=== PATIENT | male | born 1975 | race Caucasian/White ===

== ENCOUNTER 2017-02-17 19:14 | Emergency (ER) | payer MEDICAID ==
[~2017-02-17] VITALS: Ht 160 cm; Wt 122.5 kg
[~2017-02-17 19:14] MED LIST: ASPIRIN81 M2 PO; CELEXA20 MG PO; CIPROFLOXACIN500 M1 PO; HYDROCODONE-AP1 EAC6 PO; PRILOSEC 20 MG20 MG PO; TOPROL XL25 MG PO
[2017-02-17] MEDS ORDERED: EFFEXOR XR75 MG PO (19:20)
[2017-02-17 19:32] LABS: ABSOLUTE EOSINOPHILS 0.5 thou/uL (0.0-0.7); ABSOLUTE LYMPHOCYTES 1.8 thou/uL (0.8-5.3); ABSOLUTE MONOCYTES 1.2 thou/uL (0.0-1.2); BASOPHILS 0.3 %; EOSINOPHILS 4.1 %; HEMATOCRIT 43.6 % (42.0-52.0); HEMOGLOBIN 14.4 gm/dL (14.0-18.0); LYMPHOCYTES 14.4 %; MCHC 33.1 g/dL (28.0-37.0); MCV 84.8 fL (80.0-100.0); MONOCYTES 9.3 %; MPV 8.3 fl. (7.2-11.1); NUCLEATED RBCS 0 /100WBC; PLATELET COUNT* 328 thou/uL (150-400); POLYS 71.9 %; RBC 5.14 mil/uL (4.50-6.00); RDW-CV 13.8 % (10.5-14.5); WBC 12.6 thou/uL (4.0-11.0)
[2017-02-17 19:41] LABS: CALCIUM 8.4 mg/dL (8.5-10.1); POTASSIUM 3.8 mmol/L (3.5-5.1)
[2017-02-17 19:45] LABS: ALBUMIN 3.1 g/dL (3.4-5.0); TOTAL BILIRUBIN 0.3 mg/dL (<0.1-1.0)
[2017-02-17] MEDS ORDERED: HYDROCODONE-AP1 EAC6 PO (21:07)
[2017-02-17 21:31] VITALS: BP 172/90
== END 2017-02-17 21:34 | disposition home or self-care (01) ==
LOC: M.ERS 19:14
PROVIDERS: Physician Assistant
DX: R10.33 Periumbilical pain (principal); R10.32 Left lower quadrant pain; I10 Essential (primary) hypertension; F41.9 Anxiety disorder, unspecified; Z87.442 Personal history of urinary calculi; Z98.890 Other specified postprocedural states; Z87.898 Personal history of other specified conditions; Z88.1 Allergy status to other antibiotic agents; Z88.8 Allergy status to other drugs, medicaments and biological substances

== ENCOUNTER 2017-07-16 21:35 | Inpatient (IN) | payer MEDICAID ==
[~2017-07-16] VITALS: Ht 160 cm; Wt 131.4 kg
[~2017-07-16 21:35] MED LIST changes: +EFFEXOR XR75 MG PO
[2017-07-16 21:37] VITALS: BP 137/84
[2017-07-16 21:57] LABS: ABSOLUTE EOSINOPHILS 0.6 thou/uL (0.0-0.7); ABSOLUTE LYMPHOCYTES 2.4 thou/uL (0.8-5.3); ABSOLUTE MONOCYTES 1.2 thou/uL (0.0-1.2); ABSOLUTE NEUTROPHILS 7.4 thou/uL (1.6-8.1); BASOPHILS 0.2 %; HEMATOCRIT 43.1 % (42.0-52.0); HEMOGLOBIN 14.3 gm/dL (14.0-18.0); LYMPHOCYTES 20.9 %; MCH 27.6 pg (26.0-34.0); MCHC 33.1 g/dL (28.0-37.0); MCV 83.4 fL (80.0-100.0); MPV 8.4 fl. (7.2-11.1); NUCLEATED RBCS 0 /100WBC; PLATELET COUNT* 321 thou/uL (150-400); POLYS 63.9 %; RBC 5.17 mil/uL (4.50-6.00); RDW-CV 14.6 % (10.5-14.5); WBC 11.5 thou/uL (4.0-11.0)
[2017-07-16 22:06] LABS: ANION GAP 5 mmol/L (7-16); BUN 14 mg/dL (7-18); CALCIUM 8.4 mg/dL (8.5-10.1); CHLORIDE 105 mmol/L (98-107); CO2 27 mmol/L (21-32); CREATININE 0.9 mg/dL (0.6-1.3); GLUCOSE 111 mg/dL (70-99); POTASSIUM 3.6 mmol/L (3.5-5.1); SODIUM 137 mmol/L (136-145)
[2017-07-16 22:09] LABS: PROTIME 9.8 Seconds (9.20-11.50)
[2017-07-16 22:16] LABS: ALBUMIN 3.2 g/dL (3.4-5.0); ALKALINE PHOSPHATASE 116 U/L (46-116); NT-PRO BRAIN NAT PEPTIDE 12 pg/mL (<300); SGOT 12 U/L (15-37); SGPT 37 U/L (30-65); TOTAL BILIRUBIN 0.2 mg/dL (<0.1-1.0); TROPONIN-I LEVEL <0.06 ng/mL (<0.06)
[2017-07-17] VITALS (7 sets, daily range): BP systolic 124–160; BP diastolic 89–108
[2017-07-17] MEDS ORDERED: MIRALAX17 GM PO (00:43)
[2017-07-17 05:19] LABS: HEMATOCRIT 43.5 % (42.0-52.0); HEMOGLOBIN 14.2 gm/dL (14.0-18.0); MCH 27.6 pg (26.0-34.0); MCHC 32.5 g/dL (28.0-37.0); MCV 84.7 fL (80.0-100.0); MPV 8.5 fl. (7.2-11.1); RBC 5.13 mil/uL (4.50-6.00); RDW-CV 14.5 % (10.5-14.5); WBC 11.8 thou/uL (4.0-11.0)
[2017-07-17 05:46] LABS: ALBUMIN 3.3 g/dL (3.4-5.0); CALCIUM 8.7 mg/dL (8.5-10.1); POTASSIUM 4.4 mmol/L (3.5-5.1); TOTAL BILIRUBIN 0.3 mg/dL (<0.1-1.0); TOTAL PROTEIN 6.8 g/dL (6.4-8.2)
[2017-07-17 10:25] LABS: CHOLESTEROL 129 mg/dL (<200); HDL CHOLESTEROL 35 mg/dL (>40); LDL CHOLESTEROL 76 mg/dL (<100); SERUM ASSESSMENT Clear; TC:HDL 3.7 Ratio (Not establshd); TRIGLYCERIDE 94 mg/dL (<150); VLDL 19 mg/dL (<40)
[2017-07-17 15:06] LABS: GLYCOHEMOGLOBIN (HGB A1C) 5.6 % (4.8-5.6)
--- NOTE | 2017-07-17 15:20 | EKG ---
[place] [address] ELECTROCARDIOGRAM REPORT Name: GAGE LEWIS Room: [address] IN [facility]#: [id number] Admission: 07/16/17 Attend Phys: Manuel Mims, Discharge: Date of : 73 Report #: [id number] THIS REPORT FOR: //name// [facility] ED Test Date: 2017-07-16 Test Time: 21:39:34 Pat Name: GAGE LEWIS Department: Room: Gender: M Web Operations Manager: : 1975 Requested By: Katiuska Elizondo Order Number: [id number] MD: Gustavo Garcia Measurements Intervals [place] Rate: 108 P: 48 RI: 128 QRS: 66 QRSD: 87 T: 42 QT: 333 QTc: 447 Interpretive Statements Sinus tachycardia Abnormal R-wave progression, early transition Compared to ECG 11/18/2016 20:40:08 No significant changes Electronically Signed On 07-17-2017 15:20:43 CDT by Gustavo Garcia [email or web address] <ELECTRONICALLY SIGNED> By: Gustavo Garcia MD, [facility] 07/17/17 1520 38 38 Gustavo Garcia MD, FAC /EPI
--- NOTE | 2017-07-17 15:23 | EKG ---
[place] [address] ELECTROCARDIOGRAM REPORT Name: GAGE LEWIS Room: [address] IN [facility].#: [id number] Admission: 07/16/17 Attend Phys: Manuel Mims, Discharge: Date of : 73 Report #: [id number] THIS REPORT FOR: //name// [facility] ED Test Date: 2017-07-16 Test Time: 23:08:51 Pat Name: GAGE LEWIS Department: Room: Gender: Home Health Caregiver[facility] : 1975 Requested By: Katiuska Elizondo Order Number: [id number] MD: Gustavo Garcia Measurements Intervals [place] Rate: 90 P: 37 GA: 126 QRS: 49 QRSD: 101 T: 44 QT: 378 QTc: 463 Interpretive Statements Sinus rhythm Low voltage, precordial leads Abnormal R-wave progression, early transition Electronically Signed On 07-17-2017 15:23:08 CDT by Gustavo Garcia [email or web address] <ELECTRONICALLY SIGNED> By: Gustavo Garcia MD, [facility] 07/17/17 1523 07 07 Gustavo Garcia MD, FACC /EPI
--- NOTE | 2017-07-17 15:25 | EKG ---
[place] [address] ELECTROCARDIOGRAM REPORT Name: GAGE LEWIS Room: [address] ADM IN M.R.#: [id number] Admission: 07/16/17 Attend Phys: Manuel Mims, Discharge: Date of : 73 Report #: [id number] THIS REPORT FOR: //name// [facility] Test Date: 2017-07-17 Test Time: 01:53:46 Pat Name: GAGE LEWIS Department: Room: [address] Gender: M Lead Java Software Engineer: GERHARD : 1975 Requested By: Manuel Mims Order Number: [id number] Tyrell MD: Gustavo Garcia Measurements Intervals [place] Rate: 75 P: 46 ID: 138 QRS: 53 QRSD: 100 T: 46 QT: 407 QTc: 455 Interpretive Statements Sinus rhythm Electronically Signed On 07-17-2017 15:24:52 CDT by Gustavo Garcia [email or web address] <ELECTRONICALLY SIGNED> By: Gustavo Garcia MD, [facility] 07/17/17 1524 0153 0153 Gustavo Garcia MD, FACC /EPI
--- NOTE | 2017-07-17 15:26 | EKG ---
[place] [address] ELECTROCARDIOGRAM REPORT Name: GAGE LEWIS Room: [address] ADM IN M.R.#: [id number] Admission: 07/16/17 Attend Phys: Manuel Mims, Discharge: Date of : 73 Report #: [id number] THIS REPORT FOR: //name// [facility] Test Date: 2017-07-17 Test Time: 08:05:48 Pat Name: GAGE LEWIS Department: Room: [address] Gender: M Enterostomal Therapy Nurse: HARITHA : 1975 Requested By: Katiuska Elizondo Order Number: [id number] Tyrell MD: Gustavo Garcia Measurements Intervals [place] Rate: 69 P: 50 AL: 139 QRS: 56 QRSD: 90 T: 56 QT: 403 QTc: 432 Interpretive Statements Sinus arrhythmia Abnormal R-wave progression, early transition Electronically Signed On 07-17-2017 15:26:22 CDT by Gustavo Garcia [email or web address] <ELECTRONICALLY SIGNED> By: Gustavo Garcia MD, [facility] 07/17/17 1526 0805 0805 Gustavo Garcia MD, FACC /EPI
[2017-07-18] VITALS (16 sets, daily range): BP systolic 131–158; BP diastolic 78–106
--- NOTE | 2017-07-18 17:12 | CARD ---
[address] [address] CARDIAC CATH REPORT Name: DEBBIEGAGE Del Cid Nehemias Room: [address] [place] Mclain#: [id number] Admission: 07/16/17 Attend Phys: Manuel Mims, Discharge: 07/18/17 Date of : 73 Report #: [id number] THIS REPORT FOR: //name// APPROVED REPORT Study performed: 07/18/2017 08:02:24 Patient Details Patient Status: In-Patient Room #: 219 The patient is a 41 year-old male Event Personnel Gustavo Garcia Box Estimator, Evi Verma RN Informatics Scientist, Angela Dumont Monitor, Declan Quick, Edna Foley RN Informatics Scientist Procedures Performed Art Access - R radial artery , Left Heart Catheterization, Selective Right and Left Coronary Angiography, Left Ventriculogram Indication Chest pain Risk Factors Arterial Hypertension Admission/Lab Medications/Medications given during procedure Heparin Unfract. Procedure Narrative The patient was brought electively to the Cardiac Catheterization Laboratory and was prepped and draped in a sterile manner. The right wrist was infiltrated with 2% Lidocaine subcutaneous anesthesia. A Slender Glidesheath sheath was inserted into the right radial artery. Coronary angiography was performed using coronary diagnostic catheters. The right coronary system was accessed and visualized with a 3DRC 6fr catheter. The left coronary system was accessed and visualized with a 6fr JL 4 catheter. The left ventricle was accessed and visualized with a Diagnostic pigtail cath catheter. Left ventricular/Aortic Valve gradient assessed via catheter pullback. Left ventriculogram was performed in FERNÁNDEZ projection. Closure device was deployed with a 6 Fr Vasc-Band Lng 27cm. The patient tolerated the procedure well and there were no complications associated with the procedure. There was no hematoma. tortuous [place] [address] CARDIAC CATH REPORT Name: DEBBIEGAGE Nehemias [address] [id number] Admission: 07/16/17 Attend Phys: Manuel Mims, Discharge: 07/18/17 Date of : 73 Report #: [id number] noted Intraoperative Conscious Sedation Sedation start time: 8:56 Case end Time: 9:30 Fentanyl 25 mcg Versed 4 mg Fluoro Time: 8.2 minutes Dose: DAP 012970 cGycm2 1662.11 mGy Contrast Type and Amount: Omnipaque 100 ml Coronary Angiography The patient's coronary anatomy is co- dominant. [place] Artery Percent Stenosis Left Main: 0 % Prox LAD: 0 % Mid/Distal LAD: 0 % Circumflex: 0 % RCA: 0 % Ramus: % Left Ventriculography The left ventricle is normal in size with normal contractility. The left ventricular ejection fraction is estimated to be 60-65%. Left ventricular wall motion abnormalities are not present. There is no mitral insufficiency. Hemodynamics The aortic pressure is 128/94 mmHg with a mean of mmHg. The left ventricular pressure is 150/9 mmHg with a mean of mmHg. The left ventricular end diastolic pressure is 16 mmHg. There was no gradient across the aortic valve upon pullback. Pullback from the left ventricle to the aorta revealed no gradient across the aortic valve. Conclusion 1. no significant cad 2. normal LV function 3. suspect noncardiac chest pain Recommendations Aggressive Medical Therapy <ELECTRONICALLY SIGNED> By: Gustavo Garcia MD, FACC 07/18/171711 11 1712Dzuleyma Garcia MD, FACC /INF
--- NOTE | 2017-07-18 18:03 | CON ---
[address] [address] CONSULTATION Name: GAGE LEWIS Room: [address] [place] Mclain#: [id number] Admission: 07/16/17 Attend Phys: Manuel Mims, Discharge: 07/18/17 Date of : 73 Report #: [id number] THIS REPORT FOR: //name// CC: KOURTNEY physician/PCP Manuel Mims DATE OF SERVICE: 07/17/2017 HISTORY OF PRESENT ILLNESS: The patient is a 41-year-old white male with a history of spina bifida and who is confined to a wheelchair, who was admitted last night complaining of chest pain. The patient has a long history of chest pain. He apparently had a heart catheterization at [facility] about 6 years ago through the radial artery and was told there was no significant coronary artery disease. He actually had a dobutamine stress echo a year ago here at [facility] that showed no evidence of ischemia. The patient was doing well until last night at home when he became diaphoretic, nauseated, had some pain in is chest, went into his left arm. He called the ambulance. He was given nitroglycerin. The pain appeared to resolve. He was admitted for further evaluation and treatment. He denied any shortness of breath with the episode. He denied the pain being related to food. He has had no blood in the stool. He denied fever or cough. He does get short of breath when he exerts himself. He notes occasional flutter in his chest, but has had no syncope. The pain was not related to food. He had no belch with the episode. 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 He has had an appendectomy, cholecystectomy. His medications on admission consisted of metoprolol for hypertension. No history of diabetes or hyperlipidemia. MEDICATIONS: Include aspirin, omeprazole, Effexor. ALLERGIES: HE HAS INTOLERANCE TO ROCEPHIN, VANCOMYCIN. FAMILY HISTORY: His father had heart disease. SOCIAL HISTORY: He has been before, has no children, lives in [place] [facility] He works as a fabrication welder. He does drive a vehicle. He has no history of smoking, no alcohol abuse, denies illicit drug use. REVIEW OF SYSTEMS: He is overweight, being 5 feet 3 inches, 270 pounds. He does snore at night, never been tested for sleep apnea. No history of stroke, asthma, peptic ulcer disease. He has had a kidney stone in the past. He wears glasses. No cancer, no psychiatric illness. PHYSICAL EXAMINATION: GENERAL: Large middle-aged male lying in bed, appeared [place] [address] CONSULTATION Name: GAGE LEWIS Room: [address] [place] Mclain#: [id number] Admission: 07/16/17 Attend Phys: Manuel Mims, Discharge: 07/18/17 Date of : 73 Report #: [id number] VITAL SIGNS: He had a blood pressure of 140/80, pulse is 80. He is afebrile. HEENT: He is anicteric. Conjunctivae pink. Mucous membranes moist. NECK: Veins difficult to assess due to obesity. No carotid bruits. CHEST: Clear to auscultation. CARDIAC: Regular rate and rhythm. No murmur or rub. ABDOMEN: Obese. EXTREMITIES: Had trace edema. Dorsalis pedis pulse could not be palpated. SKIN: Cool and dry. DIAGNOSTIC DATA: His ECG shows a sinus rhythm without ST or T-wave change. Workup in the Emergency Room last night, he had a chest x-ray that showed a normal heart size, clear lung mireles. Previous CT scan of the head done without contrast showed no acute abnormality. LABORATORY DATA: BUN 15, creatinine 1, glucose 151. His liver function studies were normal, although his alkaline phosphatase is 119, bilirubin is 0.3. Troponins are all 0.06. Cholesterol 129, triglyceride 94, HDL 35, LDL 76. White blood cell count 11.8, hemoglobin 14.2. IMPRESSION AND RECOMMENDATIONS: 1. Chest pain. The patient has risk factors for coronary artery disease. His pain is somewhat atypical for angina. No acute myocardial infarction. The patient had a stress test a year ago. At this time, I will recommend cardiac catheterization. 2. Hypertension. The patient is on a beta victoria. 3. Spina bifida. The patient confined to a wheelchair. 4. Obesity. 5. Snoring at night. I would rule out sleep apnea. 6. History of kidney stones. <ELECTRONICALLY SIGNED> By: Gustavo Garcia MD, FACC 07/18/17 1803 1032 1454David Les Garcia MD, FACC /nt
== END 2017-07-18 14:31 | disposition home or self-care (01) | DRG 445 ==
LOC: M.ERS 21:35 → M.TBA-ER 23:02 → M.2W 23:02
PROVIDERS: Emergency Medicine; Internal Medicine; ADMIT Family Medicine
PROC: B2151ZZ Fluoroscopy of Left Heart using Low Osmolar Contrast (ICD-10-PCS; principal; 2017-07-18)
PROC: 4A023N7 Measurement of Cardiac Sampling and Pressure, Left Heart, Percutaneous Approach (ICD-10-PCS; principal; 2017-07-18)
PROC: B2111ZZ Fluoroscopy of Multiple Coronary Arteries using Low Osmolar Contrast (ICD-10-PCS; principal; 2017-07-18)
DX: K82.8 Other specified diseases of gallbladder (principal); Q05.4 Unspecified spina bifida with hydrocephalus; Z68.43 Body mass index [BMI] 50.0-59.9, adult; I10 Essential (primary) hypertension; F41.9 Anxiety disorder, unspecified; R06.83 Snoring; E66.01 Morbid (severe) obesity due to excess calories; R73.9 Hyperglycemia, unspecified; K21.9 Gastro-esophageal reflux disease without esophagitis; R74.8 Abnormal levels of other serum enzymes; Z87.442 Personal history of urinary calculi; Z98.890 Other specified postprocedural states; Z88.6 Allergy status to analgesic agent; Z88.1 Allergy status to other antibiotic agents; Z88.8 Allergy status to other drugs, medicaments and biological substances; Z99.3 Dependence on wheelchair; Z90.49 Acquired absence of other specified parts of digestive tract; Z79.82 Long term (current) use of aspirin; Z79.899 Other long term (current) drug therapy; Z82.49 Family history of ischemic heart disease and other diseases of the circulatory system; Z98.2 Presence of cerebrospinal fluid drainage device

== ENCOUNTER 2019-10-07 21:23 | Inpatient (IN) | payer MEDICAID ==
[~2019-10-07] VITALS: Ht 160 cm; Wt 128.3 kg
[~2019-10-07 21:23] MED LIST changes: +MIRALAX17 GM PO
[2019-10-07 21:27] VITALS: BP 147/94
[2019-10-07 21:53] LABS: HEMATOCRIT 43.1 % (42.0-52.0); HEMOGLOBIN 14.8 gm/dL (14.0-18.0); MCH 28.4 pg (26.0-34.0); MCHC 34.3 g/dL (28.0-37.0); MCV 82.8 fL (80.0-100.0); MPV 8.3 fl. (7.2-11.1); NUCLEATED RBCS 0 /100WBC; PLATELET COUNT* 263 thou/uL (150-400); RBC 5.21 mil/uL (4.50-6.00); RDW-CV 14.4 % (10.5-14.5); WBC 16.8 thou/uL (4.0-11.0)
[2019-10-07 21:58] LABS: CALCIUM 8.5 mg/dL (8.5-10.1); POTASSIUM 3.3 mmol/L (3.5-5.1)
[2019-10-07 22:02] LABS: APTT 33.4 Seconds (25.0-31.3); PROTIME 10.6 Seconds (9.20-11.50)
[2019-10-07 22:11] LABS: ALBUMIN 3.2 g/dL (3.4-5.0); CK-MB MASS 0.5 ng/mL (<0.5-3.6); MAGNESIUM 1.9 mg/dL (1.8-2.4); TOTAL BILIRUBIN 0.7 mg/dL (<0.1-1.0); TOTAL PROTEIN 7.6 g/dL (6.4-8.2)
[2019-10-07 22:45] LABS: ABSOLUTE EOSINOPHILS 0.2 thou/uL (0.0-0.7); ABSOLUTE LYMPHOCYTES 1.5 thou/uL (0.8-5.3); ABSOLUTE MONOCYTES 0.3 thou/uL (0.0-1.2); ABSOLUTE NEUTROPHILS 14.8 thou/uL (1.6-8.1); ANISOCYTOSIS Occasional; HYPOCHROMASIA 1+; PLATELET ESTIMATE ADEQUATE; TOXIC GRANULATION 1+
[2019-10-08] VITALS (7 sets, daily range): BP systolic 115–154; BP diastolic 67–100
--- NOTE | 2019-10-08 09:57 | EKG ---
[place] [address] ELECTROCARDIOGRAM REPORT Name: DEBBIEGAGE Nehemias Room: [place] [address] ADM IN ..#: [id number] Admission: 10/07/19 Attend Phys: Tahira Olson, Discharge: Date of : 73 Date of Service: 10/07/192126 Report #: [id number] THIS REPORT FOR: //name// [facility] ED Test Date: 2019-10-07 Test Time: 21:27:01 Pat Name: GAGE LEWIS Department: Room: [facility] Gender: M Grant Administrator: LASHANDA : 1975 Requested By: Robby Carlson Order Number: [id number] MD: Gustavo Garcia Measurements Intervals [place] Rate: 136 P: 43 [place]: 120 QRS: 87 QRSD: 88 T: -8 QT: 294 QTc: 443 Interpretive Statements Sinus tachycardia Borderline T abnormalities, inferior leads Compared to ECG 07/17/2017 08:05:48 T-wave abnormality now present Sinus arrhythmia no longer present Electronically Signed On 10-08-2019 9:56:46 CDT by Gustavo Garcia [email or web address] <ELECTRONICALLY SIGNED> By: Gustavo Garcia MD, [facility] 10/08/1957 26 26 Gustavo Garcia MD, [facility] /EPI
[2019-10-08 10:58] LABS: ABSOLUTE BASOPHILS 0.1 thou/uL (0.0-0.2); ABSOLUTE EOSINOPHILS 0.1 thou/uL (0.0-0.7); ABSOLUTE LYMPHOCYTES 0.9 thou/uL (0.8-5.3); ABSOLUTE MONOCYTES 0.5 thou/uL (0.0-1.2); ABSOLUTE NEUTROPHILS 9.9 thou/uL (1.6-8.1); BASOPHILS 0.5 %; EOSINOPHILS 0.6 %; HEMATOCRIT 39.6 % (42.0-52.0); HEMOGLOBIN 13.4 gm/dL (14.0-18.0); LYMPHOCYTES 8.3 %; MCH 28.2 pg (26.0-34.0); MCHC 33.7 g/dL (28.0-37.0); MCV 83.6 fL (80.0-100.0); MONOCYTES 4.1 %; MPV 8.5 fl. (7.2-11.1); NUCLEATED RBCS 0 /100WBC; PLATELET COUNT* 233 thou/uL (150-400); POLYS 86.5 %; RBC 4.74 mil/uL (4.50-6.00); RDW-CV 14.1 % (10.5-14.5); WBC 11.5 thou/uL (4.0-11.0)
[2019-10-08 11:12] LABS: ALBUMIN 2.6 g/dL (3.4-5.0); CALCIUM 8.2 mg/dL (8.5-10.1); POTASSIUM 3.3 mmol/L (3.5-5.1); TOTAL BILIRUBIN 0.6 mg/dL (<0.1-1.0); TOTAL PROTEIN 6.7 g/dL (6.4-8.2)
--- NOTE | 2019-10-08 17:58 | NUR ---
ASSUMED PT CARE AT 1530 REPORT RECEIVED FROM NURSE. PT IS AOX4. ON RA. TRACING ST ON RECONDITIONER. DENIES PAIN. ATE DINER. ADMISSION HX AND ASSESSEMENT DONE AT BEDSIDE. LEFT LOWER EXTREMITY IS WARM TO TOUCH AND NUMB. LEFT LOWER EXTREMITY IS RED IN COLOR. NO FURTHER COMPLAINT. IV ABX HANGED. WILL CONTINUE TO MONITOR PT.
--- NOTE | 2019-10-08 18:10 | NUR ---
PICTURE OF LEFT LOWER EXT TAKEN AND PLACED IN CAHRT. WOUND CARE CONSULTED.
[2019-10-09] VITALS: BP 123/86
[2019-10-09 04:00] VITALS: BP 132/84
[2019-10-09 04:55] LABS: ABSOLUTE BASOPHILS 0.1 thou/uL (0.0-0.2); ABSOLUTE EOSINOPHILS 0.2 thou/uL (0.0-0.7); ABSOLUTE LYMPHOCYTES 1.6 thou/uL (0.8-5.3); ABSOLUTE MONOCYTES 0.9 thou/uL (0.0-1.2); ABSOLUTE NEUTROPHILS 5.9 thou/uL (1.6-8.1); BASOPHILS 0.7 %; EOSINOPHILS 2.1 %; HEMATOCRIT 37.9 % (42.0-52.0); HEMOGLOBIN 12.6 gm/dL (14.0-18.0); LYMPHOCYTES 18.1 %; MCH 27.7 pg (26.0-34.0); MCHC 33.4 g/dL (28.0-37.0); MCV 83.1 fL (80.0-100.0); MONOCYTES 10.8 %; MPV 8.1 fl. (7.2-11.1); NUCLEATED RBCS 0 /100WBC; PLATELET COUNT* 238 thou/uL (150-400); POLYS 68.3 %; RBC 4.56 mil/uL (4.50-6.00); RDW-CV 14.2 % (10.5-14.5); WBC 8.7 thou/uL (4.0-11.0)
[2019-10-09 05:17] LABS: ALBUMIN 2.5 g/dL (3.4-5.0); CALCIUM 8.6 mg/dL (8.5-10.1); CREATININE 0.9 mg/dL (0.6-1.3); TOTAL BILIRUBIN 0.4 mg/dL (<0.1-1.0); TOTAL PROTEIN 6.6 g/dL (6.4-8.2)
[2019-10-09 05:37] LABS: POTASSIUM 4.3 mmol/L (3.5-5.1)
--- NOTE | 2019-10-09 07:59 | NUR ---
ASSUMED CARE OF PT AFTER REPORT AT 1930. PT A&OX4. VSS. PHYSICAL ASSESSMENT COMPLETED AND CHARTED. PT ON RA. PT TRACING ST ON TELE. PT INCONTINENT WITH BLADDER. PT DENIES ANY PAIN. CALL LIGHT WITHIN REACH.
[2019-10-09 08:15] VITALS: BP 127/83
[2019-10-09 12:00] VITALS: BP 131/67
--- NOTE | 2019-10-09 12:37 | NUR ---
Pt is A&O. Resides at home with his fiance. Pt is independent. Pt uses a wc for mobility. No home o2. Hx of [facility]. Hx of skilled at [facility]. Pt sees Zandra Farias NP [phone]. Anticipate that Pt will be medically stable to dc tomorrow. Pt continues on IVABX.
[2019-10-09 16:00] VITALS: BP 136/92
--- NOTE | 2019-10-09 19:00 | NUR ---
PT IS ALERT AND ORIENTED BEDREST W/C BOUND INCONTINENT OF B&B IV ABT CONTINUE TO LAC HOPEFUL TO DC TOMORROW LOW GRADE 99 TEMP TODAY NO PAIN CALL LIGHT IN REACH
[2019-10-09 20:00] VITALS: BP 144/81
[2019-10-10] VITALS: BP 141/86
[2019-10-10 04:00] VITALS: BP 127/63
--- NOTE | 2019-10-10 07:41 | NUR ---
ASSUMED CARE OF PT AFTER REPORT AT 1930. PT A&OX4. VSS. PHYSICAL ASSESSMENT COMPLETED AND CHARTED. PT ON RA. PT TRACING SR/ST ON TELE. PT DENIES ANY PAIN. FALL PRECAUTIONS IN PLACE. PT ABLE TO SLEEP WELL ON BED. CALL LIGHT WITHIN REACH.
[2019-10-10 08:00] VITALS: BP 140/99
--- NOTE | 2019-10-10 10:50 | NUR ---
Pt discharging to home today, no needs. Family to supervisor opening and picking and transport after 2pm
[2019-10-10 12:04] VITALS: BP 126/75
[2019-10-10 13:10] VITALS: BP 126/75
[2019-10-10] MEDS ORDERED: CLEOCIN HCL150 MG PO (13:56)
== END 2019-10-10 14:30 | disposition home or self-care (01) | DRG 872 ==
LOC: M.ERS 21:23 → M.TBA-ER 22:25 → M.2W 10-08 15:20
PROVIDERS: Family Medicine; Nurse Practitioner; ADMIT Internal Medicine; ATTEND Internal Medicine
DX: A41.9 Sepsis, unspecified organism (principal); L03.116 Cellulitis of left lower limb; I10 Essential (primary) hypertension; F41.9 Anxiety disorder, unspecified; Z90.49 Acquired absence of other specified parts of digestive tract; Z87.442 Personal history of urinary calculi; Z82.49 Family history of ischemic heart disease and other diseases of the circulatory system; Z88.1 Allergy status to other antibiotic agents; Z88.8 Allergy status to other drugs, medicaments and biological substances; Q05.9 Spina bifida, unspecified; Z83.6 Family history of other diseases of the respiratory system